=== PATIENT | male | born 1965 | race Caucasian/White ===

== ENCOUNTER 2024-12-04 09:16 | Emergency (ER) | payer OTHER, SELFPAY ==
[2024-12-04 09:16] VITALS: BP 99/68
[2024-12-04 09:30] LABS: % Basophils 0.3 % (0-2); % Eosinophils 0.8 % (0-6); % Immature Granulocytes 0.3 % (0-0.5); % Lymphocytes 5.8 % (20.5-51.1); % Monocytes 3.3 % (1.7-9.3); % Neutrophils 89.5 % (42.2-75.2); Absolute Eosinophils 0.1 10^3/uL (0-0.7); Absolute Lymphocytes 0.5 10^3/uL (1.2-3.4); Absolute Monocytes 0.3 10^3/uL (0.1-0.6); Hematocrit 42.9 % (39.0-52.0); Hemoglobin 15.4 g/dL (13.0-18.0); Mean Corp Hgb Conc. 35.9 g/dL (33.0-37.0); Mean Corpuscular Hgb 29.8 pg (27.0-31.0); Mean Platelet Volume 9.9 fL (7.4-10.4); Nucleated Red Blood Cells % 0 % (-); Platelet Count 157 10^3/uL (130-400); Red Blood Cell Count 5.17 10^6/uL (4.70-6.10); Red Cell Dist. Width 12.6 % (11.5-14.5); White Blood Cell Count 7.8 10^3/uL (4.8-10.8)
[2024-12-04] MEDS: NSS 1000 IV ×2 (09:32→10:59)
[2024-12-04] MEDS: ZOFRAN 4 MG IV (09:32)
[2024-12-04 09:48] LABS: ALT (SGPT) 29 U/L (0-50); AST (SGOT) 25 U/L (17-59); Albumin 4.3 g/dl (3.5-5.0); Alkaline Phosphatase 57 U/L (38-126); Blood Urea Nitrogen 23 mg/dl (9-20); Calcium 9.4 mg/dl (8.4-10.2); Carbon Dioxide 20 mmol/L (22-30); Chloride 106 mmol/L (98-107); Glucose 185 mg/dl (70-99); Lipase 110 U/L (23-300); Potassium 4.5 mmol/L (3.5-5.1); Sodium 136 mmol/L (135-145); Total Bilirubin 1.1 mg/dl (0.2-1.3); Total Protein 6.5 g/dl (6.3-8.2); eGFR > 60.00
--- NOTE | 2024-12-04 10:20 | ED.GENMED ---
History of Present Illness
General
Chief Complaint: Abdominal Symptoms
Source: patient and spouse
Exam Limitations: none
Time Seen by Provider: 12/04/24 10:19
History of Present Illness
History of Present Illness:
58-year-old male complaining of sudden onset nausea vomiting in the middle the night. Then got up about 8 AM with recurrent nausea. Sitting in front of the toilet with nausea became lightheaded passed out. found him on the floor. Apparently
hit his head. Currently complaining of some bilateral jaw pain. No neck pain no headache no chest pain or shortness of breath. Recently flew up from [place] for an engagement democr[employer].
Past History
Past History
ED Past Medical History: None
ED Past Surgical History: Orthopedic and Other ([employer] teeth)
Review of Systems
Review of Systems
All Other Systems: Not applicable
Respiratory: Denies trouble breathing
Cardiac: Denies chest pain or palpitations
Phy Exam
Physical Exam
Physical Exam:
GENERAL: Alert and oriented in no apparent distress. No scalp trauma
EYE: Orbits normal.
NECK: Supple, nontender
ENT: Pharynx without erythema. TMs clear
CARDIAC: Regular rate and rhythm without any obvious murmurs.
LUNGS: Clear breath sounds,normal
ABDOMEN: Soft, without focal tenderness or distention
NEUROLOGICAL: Alert and oriented , grossly non-focal
SKIN: Warm and dry, no rash or lesion, no discoloration, skin intact.
MUSCULOSKELETAL: No edema,no deformity.Good color
PSYCH: Normal and appropriate interaction.
Course
Orders/Labs/Results
Orders:
Orders
12/04/24 09:21
Complete Blood Count/With Diff Urgent
Comprehensive Metabolic Panel Urgent
Lipase Urgent
12/04/24 09:22
EKG [Electrocardiogram (*1)] Urgent
Reason for Study: Vertigo / Dizzy
12/04/24 09:23
EKG- Treatment ONCE
12/04/24 09:28
Ondansetron Injectable [Zofran] 4 mg .ROUTE .STK-MED ONE
12/04/24 09:31
0.9% Sodium Chloride 1000 ml [Nss] 1,000 ml IV BOLUS
Ondansetron Injectable [Zofran] 4 mg IV NOW STA
12/04/24 09:35
CT Head W/o Iv Contrast Urgent
Comment:
Reason For Exam: syncope with head strike
12/04/24 10:37
0.9% Sodium Chloride 1000 ml [Nss] 1,000 ml IV BOLUS
12/04/24 10:40
Cardiac Monitoring- Treatment ONCE
12/04/24 10:58
D-Dimer Urgent
Troponin I Urgent
Abnormal Lab Results
12/04/24
09:21
Absolute Neuts (auto) 7.0 H 10^3/uL
(1.4-6.5)
Absolute Lymphs (auto) 0.5 L 10^3/uL
(1.2-3.4)
Neutrophils % 89.5 H %
(42.2-75.2)
Lymphocytes % 5.8 L %
(20.5-51.1)
Carbon Dioxide 20 L mmol/L
(22-30)
BUN 23 H mg/dl
(9-20)
Glucose 185 H mg/dl
(70-99)
12/04/24 09:21
12/04/24 09:21
Vital Signs
Initial and Last Documented VS:
Initial Vital Signs
Temp Pulse Resp BP Pulse Ox
98.1 F 58 18 99/68 100
12/04/24 09:16 12/04/24 09:16 12/04/24 09:16 12/04/24 09:16 12/04/24 09:16
Last Documented Vital Signs
Temp Pulse Resp BP Pulse Ox
98.1 F 71 18 134/77 100
12/04/24 09:16 12/04/24 11:01 12/04/24 11:01 12/04/24 11:01 12/04/24 11:01
MDM/Problems Addressed
Differential Diagnosis Includes:
Patient needs significant role seafood last night. Abdomen is totally benign. Consistent with viral syndrome or food poisoning. Syncopal episode likely vasovagal. However with a flight from [place] will check D-dimer with bilateral jaw pain will
check troponin. Continued observation for a few hours
*Radiology
Radiology exam reviewed: radiology read reviewed (Negative)
*Pulse Oximetry
Patient hypoxic: no
*EKG
Interpreted by ED Provider?: Yes
Comparison EKG: no comparison EKG present
Heart Rate: 66
Rate: normal
Rhythm: sinus
Simla: normal axis
Interval: normal interval
QRS Pattern: normal QRS
Ischemia: no ischemia
*Critical Care Note
Total Time (30-74mins, 75-104mins- exclusive of procedures): Not Applicable
Update Note
Update Note:
Patient feeling well. Head CT negative. Highly doubt primary ischemic issues. Symptoms started 3 AM with negative troponin. Discussed and recommended continued observation with peak troponin. Explained the reasoning and logic. Patient feels
comfortable leaving and is willing to take that risk. Will send a prescription for Zofran and.
ED Attending Note
-
Portions of this chart may have been created with voice recognition software.� Occasional wrong word or��sound alike� substitutions may have occurred due to the inherent limitations of voice recognition software.
Discharge Plan
Departure
Patient Disposition: Home (Routine Discharge)
Date of Disposition: 12/04/24
Time of Disposition: 12:36
Patient with high blood pressure during this ER visit?: Yes
Discharge Problem:
Nausea vomiting, Syncopal episode, Mild hyperglycemia
Instructions: Syncope (fainting), Nausea and Vomiting, Adult (DC), BLOOD PRESSURE
Prescriptions:
New
ondansetron 4 mg tablet,disintegrating
4 mg PO TIDPRN PRN (Reason: nausea/vomiting) Qty: 14 0RF
Referrals:
UNKNOWN - PT DOES,NOT KNOW [Family Provider] -
Activity Restrictions/Additional Instructions:
Light diet. Stay well-hydrated
Zofran for nausea. This was called into the [facility] on [address]
Return with recurrent syncopal episodes chest pain shortness of breath unusual headache or any other concerning symptoms
Your blood sugar was minimally elevated. This was likely reactive. However for completeness I would recommend a fasting blood sugar in the next few weeks
Interventions
Interventions:
*Risk Screen - Suicide Last Done: 12/04/24 09:16
*General Assessment Last Done: 12/04/24 09:16
*ED COVID-19 Vaccine History Last Done: 12/04/24 09:16
*Nursing Disposition Last Done: 12/04/24 12:43
YI-Yvbewy-Quvubhohim Assessment Last Done: 12/04/24 11:01
Discharge Date and Time
Discharge Date/Time: 12/04/24 12:44
Print Language: GERMAN
[2024-12-04 11:01] VITALS: BP 134/77
[2024-12-04 11:33] LABS: Troponin I < 0.012 ng/ml
[2024-12-04 12:06] LABS: D-Dimer 0.28 ug/mlFEU (0.00-0.50)
== END 2024-12-04 12:44 | disposition home or self-care (01) ==
LOC: EMR 09:16
PROVIDERS: Emergency Medicine; EMERGENCY PHYSICIAN Emergency Medicine
DX: R55 Syncope and collapse (principal); R11.2 Nausea with vomiting, unspecified; R68.84 Jaw pain; R73.9 Hyperglycemia, unspecified; R03.0 Elevated blood-pressure reading, without diagnosis of hypertension; Z88.0 Allergy status to penicillin
CPT/HCPCS: 99284; 96374; 96361 ×2; 70450; 80053; 83690; 84484; 85025; 85379; 93005